=== PATIENT | female | born 1955 | race Caucasian/White ===

== ENCOUNTER 2023-04-04 14:48 | Outpatient (CLI) | payer MEDICARE | END 2023-04-04 14:49 | disposition home or self-care (01) | LOC: CSHMAMMO 14:48 | PROVIDERS: ATTEND Nurse Practitioner | DX: Z13.820 Encounter for screening for osteoporosis (principal); M85.89 Other specified disorders of bone density and structure, multiple sites; Z78.0 Asymptomatic menopausal state | CPT/HCPCS: 77080 ==